=== PATIENT | male | born 1945 | race Caucasian/White ===

== ENCOUNTER 2023-02-23 11:19 | Emergency (ER) | payer MEDICARE, OTHER ==
[2023-02-23 11:37] LABS: BASOPHILS ABSOLUTE AUTO 0.03 K/uL (0.00-0.20); BASOPHILS PERCENT AUTO 0.2 % (0.0-1.0); EOSINOPHILS PERCENT AUTO 0.7 % (0.0-6.0); HEMATOCRIT 46.7 % (42.0-52.0); HEMOGLOBIN 15.5 g/dL (14.0-18.0); IMMATURE GRAN ABSOLUTE AUTO 0.04 K/uL (0.00-0.05); IMMATURE GRAN PERCENT AUTO 0.3 % (0.0-0.4); LYMPHOCYTES PERCENT AUTO 7.5 % (24.0-44.0); MEAN CORPUSCULAR HEMOGLOBIN 27.7 pg (28.0-32.0); MEAN CORPUSCULAR HGB CONC 33.2 g/dL (32.0-36.0); MEAN CORPUSCULAR VOLUME 83.4 fL (83.0-99.0); MEAN PLATELET VOLUME 8.7 fL (9.4-12.4); MONOCYTES ABSOLUTE AUTO 0.87 K/uL (0.00-0.80); MONOCYTES PERCENT AUTO 6.5 % (0.0-8.0); NEUTROPHILS ABSOLUTE AUTO 11.34 K/uL (1.80-7.70); NEUTROPHILS PERCENT AUTO 84.8 % (41.0-71.0); PLATELET COUNT,PLT 320 K/uL (150-400); WHITE BLOOD CELL COUNT,WBC 13.38 K/uL (3.9-11.3)
[2023-02-23] MEDS ORDERED: Albuterol/Ipratropium 3.0-0.5 MG/3 ML Neb Soln NEB ONE (11:43)
[2023-02-23] MEDS ORDERED: Dexamethasone 10 MG/ML SDV IVPUSH ONE (11:43)
[2023-02-23] MEDS ORDERED: Sodium Chloride 0.9% 1,000 ML IV ONE ×2 (11:46→18:49)
[2023-02-23 12:02] LABS: A/G RATIO 0.8 (0.9-1.6); ALBUMIN 3.5 g/dL (3.4-5.0); BILIRUBIN TOTAL 0.8 mg/dL (0.2-1.0); CALCIUM 9.3 mg/dL (8.5-10.1); CREATININE 1.4 mg/dL (0.8-1.3); EST CRCL DRUG DOSING (CG) 48.56 mL/min; POTASSIUM,K 3.7 mmol/L (3.5-5.1); PROTEIN TOTAL,TP 7.9 g/dL (6.4-8.2)
[2023-02-23 12:13] LABS: CORONAVIRUS COVID-19 NAA NEGATIVE (NEGATIVE); INFLUENZA A NAA NEGATIVE (NEGATIVE); INFLUENZA B NAA NEGATIVE (NEGATIVE)
[2023-02-23] MEDS ORDERED: Iopamidol 755 MG/ML 500 ML Multipack Bottle IVPUSH STA ×2 (13:48→19:13)
[2023-02-23] MEDS ORDERED: Lidocaine 1% 5 ML VIAL INJECT ONE (14:58)
[2023-02-23] MEDS ORDERED: fentaNYL 50 MCG/ML SDV IVPUSH ONE ×2 (15:20→22:14)
[2023-02-23] MEDS ORDERED: Lidocaine 4% 1 each Patch TOP STA (15:21)
[2023-02-23 15:32] LABS: BODY FLUID TYPE PL
[2023-02-23 15:56] LABS: GLUCOSE,BODY FLUID 112 mg/dL; PROTEIN,BODY FLUID 4.8 g/dL
[2023-02-23 16:14] LABS: APPEARANCE,BODY FLUID CLOUDY; COLOR,BODY FLUID YELLOW; MONONUCLEAR, BODY FLUID 22.1 %; POLYMORPHONUCLEAR, BODY FLUID 77.9 %; RBC,BODY FLUID 12000 /uL; WBC BODY FLUID 18722 /uL
[2023-02-23 16:58] LABS: BILIRUBIN,URINE NEGATIVE (NEGATIVE); COLOR,URINE YELLOW; GLUCOSE,URINE NEGATIVE (NEGATIVE); KETONES,URINE NEGATIVE (NEGATIVE); LEUKOCYTE ESTERASE,URINE NEGATIVE (NEGATIVE); NITRITE,URINE NEGATIVE (NEGATIVE); OCCULT BLOOD,URINE NEGATIVE (NEGATIVE); PH,URINE 5.5 (5.0-8.0); PROTEIN,URINE TRACE mg/dL (NEGATIVE); UROBILINOGEN,URINE 0.2 EU/dL (<2.0)
[2023-02-23 16:59] LABS: APPEARANCE,URINE CLEAR
[2023-02-23 17:08] LABS: BACTERIA,URINE FEW (NEGATIVE); EPITHELIAL CELLS,URINE RARE (NONE-FEW); HYALINE CASTS,URINE 0-1 (0-2/LPF); MUCUS,URINE LIGHT (NONE-MOD); RBC,URINE 0-2 (0-2/HPF); WBC,URINE 0-2 (0-5/HPF)
[2023-02-23] MEDS ORDERED: Piperacillin/Tazobactam 3.375 GM in Sodium Chloride 0.9% 100 ML IV ONE (18:31)
[2023-02-23] MEDS ORDERED: VANCOmycin 2 GM/400 ML 2 GM in Premix Bag 1 BAG IV ONE (18:45)
[2023-02-23 19:05] LABS: LACTATE DEHYDROGENASE,BODY FL 205 U/L
[2023-02-23] MEDS ORDERED: Ondansetron 4 MG/2 ML SDV IVPUSH ONE (22:12)
== END 2023-02-24 00:30 ==
LOC: MW.ED 11:19
DX: J85.2 Abscess of lung without pneumonia (principal); D72.829 Elevated white blood cell count, unspecified; I10 Essential (primary) hypertension; K21.9 Gastro-esophageal reflux disease without esophagitis; F17.210 Nicotine dependence, cigarettes, uncomplicated; Z90.49 Acquired absence of other specified parts of digestive tract; Z79.899 Other long term (current) drug therapy; Z88.5 Allergy status to narcotic agent; Z20.822 Contact with and (suspected) exposure to COVID-19
CPT/HCPCS: 0240U; 32555; 36415; 71045; 71270; 71275; 74178; 80053; 81001; 82945; 83605; 83615; 83880; 84157; 84484; 85025; 87040; 87070; 87075; 87205; 89050; 93005; 96361; 96365; 96366; 96367; 96375; 96376; 99285; J1100; J2405; J2543; J3010; J3370; J3490; J7030; Q9967; 93010; J7620-GY